=== PATIENT | male | born 1995 | race Caucasian/White ===

== ENCOUNTER 2018-05-29 17:35 | Emergency (ER) | payer MEDICAID ==
[~2018-05-29] VITALS: Ht 170.2 cm; Wt 54.4 kg
[2018-05-29 17:39] VITALS: BP 143/84
--- NOTE | 2018-05-29 17:39 | NUR ---
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
--- NOTE | 2018-05-29 17:45 | NUR ---
URINE COLLECTED, SPECIMEN GIVEN TO NUCLEAR EQUIPMENT OPERATOR [facility] [place]
[2018-05-29] MEDS ORDERED: LORazepam 2 MG/ML VIAL IVP ONE (17:50)
[2018-05-29] MEDS ORDERED: NACL 0.9% 1,000 ML IV ONE ×2 (17:50→18:55)
--- NOTE | 2018-05-29 17:50 | NUR ---
PER PATIENT HAVE CHEST PAIN AFTER SMOKING MARIJUANA AND NORCO. BP FIELD 128/67,HR 177,RESP.25. PATIENT VERY ANXIOUS ON ARRIVAL TO ER WITH STRONG ODOR OF MARIJUANA. EKG DONE FIELD. HX: PNA. DENIES TAKING MEDS. AT THIS TIME. PATIENT WENT TO THE CLINIC FOR HELP. AT 1800 HR 131.
[2018-05-29 18:09] LABS: BARBITURATE, URINE NEG. ng/ml (NEG <=200); BENZODIAZEPINE, URINE NEG. ng/mL (NEG <=200); CANNABINOID, URINE POS. ng/mL (NEG <=50); COCAINE, URINE NEG. ng/mL (NEG <=300); OPIATE, URINE POS. ng/mL (NEG <=2000); PHENCYCLIDINE SCREEN,URINE NEG. ng/mL (NEG <=25)
[2018-05-29 18:11] LABS: BASOPHILS # (AUTO) 0.1 K/uL (0.00-0.22); BASOPHILS % (AUTO) 0.3 % (0.0-2.0); EOSINOPHILS # (AUTO) 0.1 K/uL (0-0.4); EOSINOPHILS % (AUTO) 0.8 % (0.0-4.0); HEMATOCRIT 47.3 % (36-52); HEMOGLOBIN 16.9 g/dL (12.0-18.0); LYMPHOCYTES # (AUTO) 2.7 K/uL (2.0-11.5); LYMPHOCYTES % (AUTO) 18.7 % (20.5-51.1); MEAN CORPUSCULAR HEMOGLOBIN 29 pg (27-31); MEAN CORPUSCULAR HGB CONC 36 g/dL (33-37); MEAN CORPUSCULAR VOLUME 81.6 fL (80-94); MONOCYTES # (AUTO) 0.8 K/uL (0.8-1.0); MONOCYTES % (AUTO) 5.7 % (1.7-9.3); NEUTROPHILS # (AUTO) 10.9 K/uL (1.8-7.7); NEUTROPHILS % (AUTO) 74.5 % (42.2-75.2); PLATELET COUNT (AUTO) 370 K/uL (140-450); RED CELL DISTRIBUTION WIDTH 13.1 % (11.6-13.7); WHITE BLOOD COUNT (AUTO) 14.7 K/uL (4.5-11.0)
[2018-05-29 18:17] LABS: ANION GAP 20.2 (8-16); CHLORIDE 104 mmol/L (98-107); CREATININE 1.2 mg/dL (0.7-1.3); GFR ARICAN-AMERICAN 99 mL/min (>90); GLUCOSE 136 mg/dL (74-106); POTASSIUM 3.2 mmol/L (3.5-5.1); SODIUM SERUM 141 mmol/L (136-145); UREA NITROGEN, BLOOD 15 mg/dL (7-18)
[2018-05-29 18:23] LABS: ACETAMINOPHEN 1.3 ug/ml (10-30); ALBUMIN 4.5 g/dL (3.4-5.0); ASPARTATE AMINOTRANSFERASE 13 U/L (15-37); TOTAL BILIRUBIN 0.6 mg/dL (0.0-1.0)
[2018-05-29 18:33] LABS: SALICYLATE < 2.8 mg/dL (2.8-20.0)
--- NOTE | 2018-05-29 19:05 | NUR ---
Received report from NAVID Quiroz.
--- NOTE | 2018-05-29 19:08 | NUR ---
PT DENIES CHEST PAIN AT THIS TIME.
--- NOTE | 2018-05-29 20:46 | NUR ---
Patient appears to be sleeping comfortably in bed. Vital Signs within normal limits. Respirations even and unlabored. Mom at bedside. HOB elevated. Side rails up x 2. No apparent distress at this time. Will continue to monitor.
--- NOTE | 2018-05-29 22:27 | NUR ---
ATTEMPTED TO DC PT. PT AWAKE, ALERT TO NAME, PLACE, AND EVENT. STATES DIZZINESS. DR MEYERS NOTIFIED. PT'S MOTHER CALLED TO FOR P/U FROM ED. VSS. CONTINUE TO MONITOR.
[2018-05-29 22:44] VITALS: BP 115/64
--- NOTE | 2018-05-29 22:44 | NUR ---
Patient discharged with v/s stable. Written and verbal after care instructions given and explained. Patient verbalized understanding. Wheel Chair Assisted with to car with family present. All questions addressed prior to discharge. Advised to follow up with PMD.
== END 2018-05-29 22:44 | disposition home or self-care (01) ==
LOC: MED 17:35
DX: F12.10 Cannabis abuse, uncomplicated (principal); F11.10 Opioid abuse, uncomplicated; R94.31 Abnormal electrocardiogram [ECG] [EKG]
CPT/HCPCS: 36415; 80053; 80305; 82948; 85025; 93005; 96361; 96374; 99284; G0480; G0482; J2060; J7030